=== PATIENT | female | born 1990 | race Caucasian/White ===

== ENCOUNTER 2017-11-25 18:20 | Emergency (ER) | payer OTHER, MEDICAID ==
[~2017-11-25] VITALS: Ht 162.6 cm; Wt 90.7 kg
[~2017-11-25 18:20] MED LIST: BIRTH CONTROL; CIPRO250 M1 PO; COLACE100 MG; DESYREL50 MG PO; EFFEXOR50 MG PO; FLEXERIL PO; HYDROCODON-ACE1 EACH; IBUPROFEN 800800 M1; MACROBID 100 M100 M1 PO; METHOCARBAMOL500 M2 PO; NOHOMEMEDICATIONS; NORCO 5-325 TA1 EACH PO; OMEPRAZOLE 20 M20 M1 PO; ORTHO TRI-CYCL1 EAC1; PERCOCET 5-3251 EACH PO; PERCOCET 7.5-31 EACH PO; PHENERGAN 25 MG25 M1 PO; PREDNISOLONE 5 M5 M1 PO; PREDNISONE 10 M10 MG PO; PRENATAL; RELPAX20 MG PO; ROBAXIN500 MG; TORADOL 10 MG T10 MG PO; TRAMADOL 50 MG50 MG PO; VIBRAMYCIN 100100 MG; VICODIN 5-5001 EACH PO; XANAX 0.25 MG0.25 MG PO; ZOFRAN ODT4 MG PO; ZOFRAN4 MG PO; ZYRTEC10 M2 PO
[2017-11-25] MEDS ORDERED: QUETIAPINE FUM100 MG PO (18:34)
[2017-11-25] MEDS ORDERED: SERTRALINE HCL50 MG PO (18:34)
[2017-11-25] MEDS ORDERED: ZANTAC 150MG T150 MG PO (18:34)
[2017-11-25 18:53] LABS: URINE BILIRUBIN NEGATIVE (Negative); URINE BLOOD NEGATIVE (Negative); URINE CLARITY CLEAR; URINE COLOR YELLOW; URINE GLUCOSE-RANDOM NEGATIVE (Negative); URINE KETONES TRACE (Negative); URINE LEUKOCYTES-REFLEX NEGATIVE (Negative); URINE NITRITE-REFLEX NEGATIVE (Negative); URINE PROTEIN NEGATIVE (Negative); URINE SPECIFIC GRAVITY >= 1.030 (1.005-1.030); URINE UROBILINOGEN 0.2 E.U./dl (0.2-1.0)
[2017-11-25 19:10] LABS: ABSOLUTE BASOPHILS 0.1 thou/uL (0.0-0.2); ABSOLUTE EOSINOPHILS 0.3 thou/uL (0.0-0.7); ABSOLUTE LYMPHOCYTES 2.5 thou/uL (0.8-5.3); ABSOLUTE MONOCYTES 0.7 thou/uL (0.0-1.2); ABSOLUTE NEUTROPHILS 4.6 thou/uL (1.6-8.1); BASOPHILS 0.9 %; EOSINOPHILS 3.2 %; HEMATOCRIT 41.4 % (37.0-47.0); HEMOGLOBIN 13.8 gm/dL (12.0-15.0); LYMPHOCYTES 31.4 %; MCHC 33.4 g/dL (28.0-37.0); MONOCYTES 8.3 %; MPV 8.1 fl. (7.2-11.1); NUCLEATED RBCS 0 /100WBC; PLATELET COUNT* 277 thou/uL (150-400); POLYS 56.2 %; WBC 8.1 thou/uL (4.0-11.0)
[2017-11-25 19:19] LABS: CALCIUM 8.7 mg/dL (8.5-10.1); CREATININE 0.8 mg/dL (0.6-1.3); POTASSIUM 4.4 mmol/L (3.5-5.1)
[2017-11-25 19:24] LABS: ALBUMIN 3.6 g/dL (3.4-5.0); TOTAL BILIRUBIN 0.1 mg/dL (<0.1-1.0); TOTAL PROTEIN 7.3 g/dL (6.4-8.2)
[2017-11-25] MEDS ORDERED: BUTALB-APAP-CA1 EACH PO (19:50)
[2017-11-25 20:04] VITALS: BP 140/60
== END 2017-11-25 20:05 | disposition home or self-care (01) ==
LOC: M.ERS 18:20
PROVIDERS: Nurse Practitioner Family
DX: K21.9 Gastro-esophageal reflux disease without esophagitis (principal); R51 Headache; F17.200 Nicotine dependence, unspecified, uncomplicated; Z88.5 Allergy status to narcotic agent; Z91.018 Allergy to other foods; Z91.030 Bee allergy status; Z90.49 Acquired absence of other specified parts of digestive tract; Z90.710 Acquired absence of both cervix and uterus

== ENCOUNTER 2019-11-23 16:22 | Emergency (ER) | payer OTHER ==
[~2019-11-23] VITALS: Ht 162.6 cm; Wt 79.4 kg
[~2019-11-23 16:22] MED LIST changes: +BUTALB-APAP-CA1 EACH PO; +QUETIAPINE FUM100 MG PO; +SERTRALINE HCL50 MG PO; +ZANTAC 150MG T150 MG PO
[2019-11-23] MEDS ORDERED: NORCO 5-325 TA1 EAC2 PO (17:32)
[2019-11-23] MEDS ORDERED: IBUPROFEN 800800 M1 PO (17:32)
[2019-11-23 17:45] VITALS: BP 131/79
== END 2019-11-23 17:45 | disposition home or self-care (01) ==
LOC: M.ERS 16:22
DX: S92.535A Nondisplaced fracture of distal phalanx of left lesser toe(s), initial encounter for closed fracture (principal); K21.9 Gastro-esophageal reflux disease without esophagitis; Z90.710 Acquired absence of both cervix and uterus; Z88.5 Allergy status to narcotic agent; Z91.030 Bee allergy status; Z91.018 Allergy to other foods; W22.8XXA Striking against or struck by other objects, initial encounter; Y93.89 Activity, other specified; Y92.89 Other specified places as the place of occurrence of the external cause; Y99.8 Other external cause status

== ENCOUNTER → 2020-01-04 | Outpatient (CLI) | payer OTHER ==
[~2020-01-04] MED LIST changes: +IBUPROFEN 800800 M1 PO; +NORCO 5-325 TA1 EAC2 PO
== END ==
LOC: M.RAD 08:46
PROVIDERS: ATTEND Surgery
DX: R11.0 Nausea (principal); Z96.9 Presence of functional implant, unspecified

== ENCOUNTER 2020-10-13 15:31 | Emergency (ER) | payer OTHER ==
[~2020-10-13] VITALS: Ht 162.6 cm; Wt 81.7 kg
[2020-10-13] MEDS ORDERED: SEROQUEL 25 MG25 MG PO (15:41)
[2020-10-13] MEDS ORDERED: VALIUM10 MG PO (15:41)
[2020-10-13] MEDS ORDERED: METHOCARBAMOL500 M2 PO (18:07)
[2020-10-13 18:22] VITALS: BP 117/79
== END 2020-10-13 18:24 | disposition home or self-care (01) ==
LOC: M.ERS 15:31
DX: S01.81XA Laceration without foreign body of other part of head, initial encounter (principal); S16.1XXA Strain of muscle, fascia and tendon at neck level, initial encounter; K21.9 Gastro-esophageal reflux disease without esophagitis; F17.210 Nicotine dependence, cigarettes, uncomplicated; Z88.5 Allergy status to narcotic agent; Z91.030 Bee allergy status; Z91.018 Allergy to other foods; Z90.710 Acquired absence of both cervix and uterus; Y08.89XA Assault by other specified means, initial encounter; Y93.89 Activity, other specified; Y92.89 Other specified places as the place of occurrence of the external cause; Y99.8 Other external cause status

== ENCOUNTER 2020-10-17 07:25 | Emergency (ER) | payer OTHER ==
[~2020-10-17] VITALS: Ht 162.6 cm; Wt 81.7 kg
[~2020-10-17 07:25] MED LIST changes: +SEROQUEL 25 MG25 MG PO; +VALIUM10 MG PO
[2020-10-17] MEDS ORDERED: [UNRECOGNIZED DRUG - OTHER] PO (07:44)
[2020-10-17] MEDS ORDERED: RAYOS5 MG PO (07:44)
[2020-10-17] MEDS ORDERED: BACTRIM DS TAB1 EAC1 PO (07:50)
[2020-10-17 07:57] VITALS: BP 144/76
== END 2020-10-17 07:58 | disposition home or self-care (01) ==
LOC: M.ERS 07:25
DX: S70.362A Insect bite (nonvenomous), left thigh, initial encounter (principal); L03.116 Cellulitis of left lower limb; K21.9 Gastro-esophageal reflux disease without esophagitis; F17.210 Nicotine dependence, cigarettes, uncomplicated; Z90.710 Acquired absence of both cervix and uterus; Z88.5 Allergy status to narcotic agent; Z91.030 Bee allergy status; Z91.018 Allergy to other foods; W57.XXXA Bitten or stung by nonvenomous insect and other nonvenomous arthropods, initial encounter; Y93.89 Activity, other specified; Y92.89 Other specified places as the place of occurrence of the external cause; Y99.8 Other external cause status

== ENCOUNTER 2020-11-21 03:21 | Emergency (ER) | payer OTHER ==
[~2020-11-21] VITALS: Ht 162.6 cm; Wt 81.7 kg
[~2020-11-21 03:21] MED LIST changes: +BACTRIM DS TAB1 EAC1 PO; +RAYOS5 MG PO; +[UNRECOGNIZED DRUG - OTHER] PO
[2020-11-21 04:28] LABS: ABSOLUTE EOSINOPHILS 0.1 thou/uL (0.0-0.7); ABSOLUTE LYMPHOCYTES 2.1 thou/uL (0.8-5.3); ABSOLUTE MONOCYTES 0.5 thou/uL (0.0-1.2); ABSOLUTE NEUTROPHILS 4.1 thou/uL (1.6-8.1); BASOPHILS 0.5 %; EOSINOPHILS 1.9 %; HEMATOCRIT 42.9 % (37.0-47.0); HEMOGLOBIN 14.3 gm/dL (12.0-15.0); LYMPHOCYTES 30.5 %; MCH 29.9 pg (26.0-34.0); MCHC 33.3 g/dL (28.0-37.0); MCV 89.8 fL (80.0-100.0); MONOCYTES 7.3 %; MPV 8.2 fl. (7.2-11.1); NUCLEATED RBCS 0 /100WBC; PLATELET COUNT* 251 thou/uL (150-400); POLYS 59.8 %; RBC 4.77 mil/uL (4.20-5.00); RDW-CV 12.7 % (10.5-14.5); WBC 6.8 thou/uL (4.0-11.0)
[2020-11-21 04:31] LABS: URINE CLARITY CLEAR; URINE COLOR YELLOW; URINE GLUCOSE-RANDOM NEGATIVE (Negative); URINE KETONES 2+ (Negative); URINE PROTEIN NEGATIVE (Negative); URINE SPECIFIC GRAVITY >= 1.030 (1.005-1.030)
[2020-11-21 04:32] LABS: URINE BILIRUBIN NEGATIVE (Negative); URINE BLOOD NEGATIVE (Negative); URINE LEUKOCYTES-REFLEX NEGATIVE (Negative); URINE NITRITE-REFLEX NEGATIVE (Negative); URINE UROBILINOGEN 0.2 E.U./dl (0.2-1.0)
[2020-11-21 04:39] LABS: AMP/METHAMP Negative (Negative); BARBITURATES Negative (Negative); BENZODIAZEPINES POSITIVE (Negative); COCAINE Negative (Negative); METHADONE Negative (Negative); OPIATES Negative (Negative); PCP Negative (Negative); THC Negative (Negative)
[2020-11-21 04:41] LABS: CALCIUM 8.7 mg/dL (8.5-10.1); CREATININE 0.9 mg/dL (0.6-1.3); POTASSIUM 3.9 mmol/L (3.5-5.1)
[2020-11-21 04:45] LABS: MAGNESIUM 1.8 mg/dL (1.8-2.4); TOTAL BILIRUBIN 0.4 mg/dL (<0.1-1.0); TOTAL PROTEIN 7.3 g/dL (6.4-8.2)
[2020-11-21 08:03] VITALS: BP 115/69
== END 2020-11-21 08:04 | disposition home or self-care (01) ==
LOC: M.ERS 03:21
PROVIDERS: Emergency Medicine
DX: R10.811 Right upper quadrant abdominal tenderness (principal); K21.9 Gastro-esophageal reflux disease without esophagitis; Z90.49 Acquired absence of other specified parts of digestive tract; Z90.710 Acquired absence of both cervix and uterus; Z79.899 Other long term (current) drug therapy; Z88.5 Allergy status to narcotic agent; Z91.030 Bee allergy status; Z91.038 Other insect allergy status; Z91.018 Allergy to other foods